=== PATIENT | female | born 1980 | race Caucasian/White ===

== ENCOUNTER 2021-06-13 09:12 | Emergency (ER) | payer SELFPAY ==
--- NOTE | 2021-06-13 09:26 | DI.RAD.S_ITS ---
PROCEDURE: XR ANKLE RT MIN 3V INDICATIONS: trip down one step TECHNIQUE: 3 views of the ankle were acquired. COMPARISON: None. FINDINGS: Bones: There are tiny avulsion fracture fragment seen distal to the lateral malleolus. No additional fractures are detected. No suspicious lytic or blastic lesions are seen. The talar dome demonstrates no addi abnormality. Incidental note is made of an accessory ossicle, an os trigonum. A plantar calcaneal spur is seen. Soft tissues: Soft tissue swelling is seen laterally. IMPRESSION: Tiny avulsion fracture fragments are seen distal to the lateral malleolus, with associated soft tissue swelling. Dictated by: Osbaldo Madsen M.D. on 06/13/2021 at 9:08 Approved by: Osbaldo Madsen M.D. on 06/13/2021 at 9:09
[2021-06-13 09:28] VITALS: BP 144/73; PULSE 89; RESP 17; TEMP 36.8; O2SAT 99; BMI 39.4
--- NOTE | 2021-06-13 09:40 | ED.LOWEXIN ---
HPI - Extremity Injury (Lower) General Chief Complaint: Extremity Injury, Lower Stated Complaint: Fell and injured right ankle Time Seen by Provider: 06/13/21 09:40 Source: patient Mode of arrival: Family Vehicle Limitations: no limitations History of Present Illness HPI Narrative: The patient missed a step last night walking down steps at home. She rolled her right ankle, her legs collapsed under her, she landed on her left knee and her hands. There is no head or neck injury. She has no upper extremity discomfort. She has a script to left knee, her left knee is fully functional. She has no discomfort to the right lateral ankle with edema and contusion. The rug heels also sore. The right foot is otherwise nontender. She cannot support weight on her right foot. There is no numbness or tingling in the right foot. She has no other injuries. Related Data Previous Rx's Medication Instructions Recorded tramadol 50 mg tablet 50 mg PO Q6-8H PRN #14 tab 06/13/21 Allergies Allergy/AdvReac Type Severity Reaction Status Date / Time hydrocodone AdvReac Mild ITCHING Verified 06/13/21 09:33 morphine AdvReac Mild ITCHING Verified 06/13/21 09:33 Review of Systems Review of Systems Narrative: See HPI regarding ROS. Patient History Medical History (Updated 06/13/21 @ 10:43 by Wilfredo Mendez MD) No chronic problems Surgical History (Updated 06/13/21 @ 09:54 by Wilfredo Mendez MD) No significant past surgical history Social History Smoking Status: Current some day smoker Smoking Status: Current some day smoker tobacco type: cigarettes alcohol intake frequency: 0-2 drinks per day Substance Use Type: does not use Exam Initial Vital Signs Initial Vital Signs: Vital Signs Temperature 98.2 F 06/13/21 09:28 Pulse Rate 89 06/13/21 09:28 Respiratory Rate 17 06/13/21 09:28 Blood Pressure 144/73 H 06/13/21 09:28 Pulse Oximetry 99 06/13/21 09:28 Const General: cooperative, healthy appearing, comfortable, well developed and well groomed Neuro General: patient alert, patient awake, patient oriented x3 and no focal motor deficits Extrem Other: mild abrasion to the left knee. No edema or abrasion. No deformity. Normal range of motion left knee. Procedures Orthopedic Splinting/Casting Injury #1: Time of procedure: 10:40 Side: right Lower Extremity Injury Location: ankle Lower Extremity Immobilizer: boot orthosis Other Orthopedic Equipment: crutches Post splinting neuro exam: intact Post splinting vascular exam: intact Placed by: Nursing Course Orders Ordered: ED Orders 06/13/21 09:26 XR ankle RT min 3V Stat Vital Signs Vital signs: Vital Signs - 8 hr 06/13/21 09:28 Temperature 98.2 F Pulse Rate 89 Respiratory Rate 17 Blood Pressure 144/73 H Pulse Oximetry 99 MDM - Extremity Injury (Lower) Imaging Data right ankle: Radiologist's Impression: ?Tiny avulsion fracture fragments are seen distal to the lateral malleolus, with associated soft tissue swelling. ? Discharge Plan Departure Patient Disposition: Home Clinical Impression: Closed fracture of distal end of right fibula Instructions: Ankle Fracture Activity Restrictions/Additional Instructions: Use the splint, and crutches as needed. You should be able to wean from the crutches in the next few days. You can wean from the ortho boot over the next 3 weeks. Recheck with your doctor in about 3 weeks. Advil 3 tablets every 6 hours as needed for pain. Tramadol every 6 hours as needed for added pain control. Return here as needed. Prescriptions: New tramadol 50 mg tablet 50 mg PO Q6-8H PRN (Reason: pain) Qty: 14 0RF
== END 2021-06-13 11:02 | disposition home or self-care (01) ==
PROVIDERS: Emergency Provider Emergency Medicine
DX: S82.831A Other fracture of upper and lower end of right fibula, initial encounter for closed fracture (principal); F17.210 Nicotine dependence, cigarettes, uncomplicated; Z88.5 Allergy status to narcotic agent; W10.9XXA Fall (on) (from) unspecified stairs and steps, initial encounter; Y92.009 Unspecified place in unspecified non-institutional (private) residence as the place of occurrence of the external cause
CPT/HCPCS: 73610; 99283